=== PATIENT | male | born 1975 | race Caucasian/White ===

== ENCOUNTER → 2016-10-06 | Outpatient (CLI) | payer BC ==
[~2016-10-06] MED LIST: ALPR0.25 PO; AMLO-114 PO; HYDR5TAB PO; METO1TAB69 PO; OXYC7.5T65 PO
--- NOTE | 2016-10-06 10:01 | DIAGNOSTIC IMAGING REPORT ---
LEFT SHOULDER MIN 2 VIEWS ROUTINE CLINICAL HISTORY: LEFT SHOULDER PAIN pain COMPARISON: None. DISCUSSION: The bones and joint spaces appear intact. There is no evidence of fracture, dislocation or bony disease. There is no evidence for soft tissue swelling. IMPRESSION: Negative study. Electronically signed by: John Chan M.D. 10/06/2016 10:00 AM Dictated Date/Time: 10/06/2016 10:00 AM
--- NOTE | 2016-10-06 10:15 | DIAGNOSTIC IMAGING REPORT ---
RIGHT THUMB 3 VIEWS CLINICAL HISTORY: Right thumb pain. FINDINGS: 3 views of the right thumb are obtained. No prior studies are available for comparison at the time of dictation. The skeletal structures are well mineralized. No fracture is seen. The first metacarpophalangeal and interphalangeal joints are well-maintained. Mild arthritic change is present the first carpometacarpal joint. The overlying soft tissues are within normal limits. No erosive change is seen. IMPRESSION: 1. No acute bony abnormality is seen in the right thumb. 2. 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 Electronically signed by: Say Urban M.D. 10/06/2016 10:14 AM Dictated Date/Time: 10/06/2016 10:12 AM
== END | disposition home or self-care (01) ==
LOC: C.RAD1850 09:42
PROVIDERS: ATTEND Family Medicine Hospice and Palliative Medicine
DX: M25.512 Pain in left shoulder (principal); R20.0 Anesthesia of skin; M79.644 Pain in right finger(s)

== ENCOUNTER → 2016-11-19 | Outpatient (CLI) | payer BC ==
[~2016-11-19] MED LIST changes: -OXYC7.5T65 PO
--- NOTE | 2016-11-19 10:36 | DIAGNOSTIC IMAGING REPORT ---
KUB CLINICAL HISTORY: Nephrolithiasis. COMPARISON STUDY: KUB May 11, [address] October 17, 2015. FINDINGS: No urinary calculi are identified. The left renal calculus shown on exam of May 11, 2016 is no longer visualized. Pelvic calcifications are unchanged and represent phleboliths. The bowel gas pattern is normal. IMPRESSION: No urinary calculi identified. Electronically signed by: Bo Agustin M.D. 11/19/2016 10:35 AM Dictated Date/Time: 11/19/2016 10:33 AM
== END | disposition home or self-care (01) ==
LOC: C.RAD 09:56
PROVIDERS: ATTEND Urology
DX: N20.0 Calculus of kidney (principal)